=== PATIENT | female | born 1990 | race Caucasian/White ===

== ENCOUNTER → 2024-04-12 08:14 | Outpatient (REF) | payer BC, SELFPAY | LOC: RCS 08:14 | PROVIDERS: ATTENDING PHYSICIAN Internal Medicine Cardiovascular Disease; FAMILY PHYSICIAN Nurse Practitioner Family | DX: R00.2 Palpitations (principal) | CPT/HCPCS: 93017; 93350; Q9957 ==

== ENCOUNTER 2024-10-15 15:22 | Emergency (ER) | payer BC, SELFPAY ==
[2024-10-15] VITALS (10 sets, daily range): BP systolic 93–111; BP diastolic 51–96
--- NOTE | 2024-10-15 15:29 | ED.GENMED ---
ED Provider Triage
<Geovany Gates PA-C - Last Filed: 10/15/24 15:31>
-
Patient seen by provider in Triage?: Seen in Triage
Attestation: A medical screening examination has been initiated by a qualified medical provider. Based on the assessment performed at this time, it has been determined that an emergent medical condition may exist and the patient has been informed
that further medical evaluation and possible additional diagnostic testing may be needed.
HPI: 34-year-old female presenting to the ER for evaluation following a witnessed syncopal episode at home. Patient feeling little bit nauseous earlier in the day. Had an episode of vomiting following the syncopal episode. Currently stating still
feels nauseous and lightheaded. Patient does appear little bit pale. Labs and EKG ordered. EMS started an IV and patient is currently receiving IV fluids.
GENERAL: Alert , in no apparent distress
EYE: No visual abnormalities.
NECK: Trachea midline
ENT: No visible abnormalities.
LUNGS: No acute respiratory distress
NEUROLOGICAL: Alert and oriented
SKIN: Skin intact. No visible changes.
MUSCULOSKELETAL: Moving extremities normally
PSYCH: Normal and appropriate interaction.
This is a medical evaluation conducted in person to initiate diagnostic evaluation and provide initial therapeutics. Please see further documentation by the treating clinician.
History of Present Illness
<Geovany Gates PA-C - Last Filed: 10/15/24 15:31>
General
Chief Complaint: Fainting/Passed Out
Time Seen by Provider: 10/15/24 18:26
<Dale Harmon DO - Last Filed: 10/15/24 18:58>
General
Source: patient and spouse
Exam Limitations: none
History of Present Illness
History of Present Illness:
34-year-old female syncopal event associate with nausea vomiting diarrhea no head strike, has passed out before no chest pain or shortness of breath denies feeling better after fluids and Zofran
Past History
<Geovany Gates PA-C - Last Filed: 10/15/24 15:31>
Past History
ED Past Medical History: None
ED Past Surgical History: None
Social History
Tobacco: Non-smoker
Living: with family
Family History
Family History: Negative Diabetes, Hypertension, Early CAD, Asthma or Cancer
<Dale Harmon DO - Last Filed: 10/15/24 18:58>
Social History
Alcohol: None
Drug: None
Personal:
Employment: Employed
Review of Systems
<Dale Harmon DO - Last Filed: 10/15/24 18:58>
Review of Systems
All Other Systems: Not applicable
Constitutional: Reports fatigue; Denies fever
EENT: Reports no symptoms
Respiratory: Reports no symptoms; Denies cough or trouble breathing
Cardiac: Reports syncope
ABD/GI: Reports nausea, vomiting and diarrhea
Musculoskeletal: Reports no symptoms
Skin: Reports no symptoms
Neurological: Reports dizzy
Endocrine: Reports no symptoms
Hematologic/Lymphatic: Reports no symptoms
Phy Exam
<Dale Harmon DO - Last Filed: 10/15/24 18:58>
Physical Exam
Physical Exam:
Physical Exam
General: no apparent distress, not acutely ill
Neck: No tongue bite no posterior neck
Heart: s1/s2 regular rate and rhythm, no murmur. equal radial pulses.
Lungs: no acute respiratory distress. clear bilaterally
Abdomen: Nontender
Neuro: alert and oriented. no focal neurological deficits
Skin: no rash
Psychiatric: well kept. interactive and cooperative
Extremities: No calf pain
Course
<FATIMAH Nicholas Last Filed: 10/15/24 15:31>
Orders/Labs/Results
Orders:
Orders
10/15/24 15:30
Electrocardiogram (*1) Urgent
Reason for Study: Syncope
EKG- Treatment ONCE
Test Result ONCE
10/15/24 15:49
Complete Blood Count/With Diff Urgent
Comprehensive Metabolic Panel Urgent
HCG, Serum Qualitative Screen Urgent
Abnormal Lab Results
10/15/24
15:49
WBC 12.2 H 10^3/uL
(4.8-10.8)
Absolute Neuts (auto) 10.0 H 10^3/uL
(1.4-6.5)
Neutrophils % 82.1 H %
(42.2-75.2)
Lymphocytes % 11.7 L %
(20.5-51.1)
Glucose 116 H mg/dl
(70-99)
10/15/24 15:49
10/15/24 15:49
Vital Signs
Initial and Last Documented VS:
Initial Vital Signs
Temp Pulse Resp BP Pulse Ox
98.9 F 78 16 101/67 98
10/15/24 15:30 10/15/24 15:30 10/15/24 15:30 10/15/24 15:30 10/15/24 15:30
Last Documented Vital Signs
Temp Pulse Resp BP Pulse Ox
98.9 F 93 14 100/57 99
10/15/24 15:30 10/15/24 18:15 10/15/24 18:15 10/15/24 18:00 10/15/24 18:15
Jhonathanlt;Dale Harmon, DO - Last Filed: 10/15/24 18:58>
Orders/Labs/Results
Orders:
Orders
10/15/24 15:30
Electrocardiogram (*1) Urgent
Reason for Study: Syncope
EKG- Treatment ONCE
Test Result ONCE
10/15/24 15:49
Complete Blood Count/With Diff Urgent
Comprehensive Metabolic Panel Urgent
HCG, Serum Qualitative Screen Urgent
Abnormal Lab Results
10/15/24
15:49
WBC 12.2 H 10^3/uL
(4.8-10.8)
Absolute Neuts (auto) 10.0 H 10^3/uL
(1.4-6.5)
Neutrophils % 82.1 H %
(42.2-75.2)
Lymphocytes % 11.7 L %
(20.5-51.1)
Glucose 116 H mg/dl
(70-99)
10/15/24 15:49
10/15/24 15:49
Vital Signs
Initial and Last Documented VS:
Initial Vital Signs
Temp Pulse Resp BP Pulse Ox
98.9 F 78 16 101/67 98
10/15/24 15:30 10/15/24 15:30 10/15/24 15:30 10/15/24 15:30 10/15/24 15:30
Last Documented Vital Signs
Temp Pulse Resp BP Pulse Ox
98.9 F 93 14 100/57 99
10/15/24 15:30 10/15/24 18:15 10/15/24 18:15 10/15/24 18:00 10/15/24 18:15
<Dale Harmon DO - Last Filed: 10/15/24 18:58>
MDM/Problems Addressed
Differential Diagnosis Includes:
Dehydration vasovagal, enteritis, gastroenteritis, ectopic
MDM/Problems Addressed:
Syncope GI illness
<Dale Harmon DO - Last Filed: 10/15/24 18:58>
*Critical Care Note
Total Time (30-74mins, 75-104mins- exclusive of procedures): Not Applicable
<Dale Harmon DO - Last Filed: 10/15/24 18:58>
Update Note
Update Note:
Update patient feeling better after IV fluids and antiemetics abdomen soft and nontender suspect this is vasovagal she is tolerating ice water
ED Attending Note
<Geovany Gates PA-C - Last Filed: 10/15/24 15:31>
-
Portions of this chart may have been created with voice recognition software.� Occasional wrong word or��sound alike� substitutions may have occurred due to the inherent limitations of voice recognition software.
Discharge Plan
Departure
Patient Disposition: Home (Routine Discharge)
Date of Disposition: 10/15/24
Time of Disposition: 18:56
Patient with high blood pressure during this ER visit?: No
Discharge Problem:
Syncope and collapse
Instructions: Syncope (Fainting) (DC)
Prescriptions:
New
ondansetron 4 mg tablet,disintegrating
4 mg PO Q8H PRN (Reason: nausea and vomiting) Qty: 10 0RF
loperamide [Imodium A-D] 2 mg capsule
2 mg PO Q6H PRN (Reason: loose stool) Qty: 20 0RF
No Action
PNV cmb#95-ferrous fumarate-FA [] 1 EACH tablet
1 ea PO DAILY
acetaminophen 325 MG tablet
650 mg PO Q4HPRN PRN (Reason: mild pain/cramps) 0RF
ibuprofen 600 MG tablet
600 mg PO Q4HPRN PRN (Reason: moderate pain/cramps) 0RF
Referrals:
Flaquita Ayala CRNP [Family Provider] - Next open appointment
Activity Restrictions/Additional Instructions:
Drink plenty of fluids, Zofran as needed for nausea vomiting Imodium as needed for diarrhea
Interventions
Interventions:
*Risk Screen - Suicide Last Done: 10/15/24 15:30
*General Assessment Last Done: 10/15/24 15:30
*Neglect/Abuse Screening Last Done: 10/15/24 15:52
*ED COVID-19 Vaccine History Last Done: 10/15/24 15:30
ED- Cardiac Assessment Last Done: 10/15/24 15:52
ED- Neurological Assessment Last Done: 10/15/24 15:52
Discharge Date and Time
Print Language: DANISH
[2024-10-15 15:56] LABS: % Basophils 0.4 % (0-2); % Eosinophils 0.4 % (0-6); % Immature Granulocytes 0.2 % (0-0.5); % Lymphocytes 11.7 % (20.5-51.1); % Monocytes 5.2 % (1.7-9.3); % Neutrophils 82.1 % (42.2-75.2); Absolute Basophils 0.1 10^3/uL (0-0.2); Absolute Eosinophils 0.1 10^3/uL (0-0.7); Absolute Lymphocytes 1.4 10^3/uL (1.2-3.4); Absolute Monocytes 0.6 10^3/uL (0.1-0.6); Hematocrit 44.7 % (37.0-47.0); Hemoglobin 15.3 g/dL (12.0-16.0); Mean Corp Hgb Conc. 34.2 g/dL (33.0-37.0); Mean Corpuscular Hgb 30.8 pg (27.0-31.0); Mean Corpuscular Volume 89.9 fL (81.0-99.0); Mean Platelet Volume 9.1 fL (7.4-10.4); Nucleated Red Blood Cells % 0 %; Platelet Count 273 10^3/uL (130-400); Red Blood Cell Count 4.97 10^6/uL (4.20-5.40); Red Cell Dist. Width 13.2 % (11.5-14.5); White Blood Cell Count 12.2 10^3/uL (4.8-10.8)
[2024-10-15 16:12] LABS: HCG, Serum Qualitative Screen Negative
[2024-10-15 16:20] LABS: ALT (SGPT) 16 U/L (0-35); AST (SGOT) 25 U/L (14-36); Albumin 4.6 g/dl (3.5-5.0); Alkaline Phosphatase 55 U/L (38-126); Blood Urea Nitrogen 17 mg/dl (7-17); Carbon Dioxide 23 mmol/L (22-30); Chloride 104 mmol/L (98-107); Glucose 116 mg/dl (70-99); Potassium 3.7 mmol/L (3.5-5.1); Sodium 138 mmol/L (135-145); Total Bilirubin 0.6 mg/dl (0.2-1.3); Total Protein 7.1 g/dl (6.3-8.2); eGFR > 60.00
[2024-10-15] MEDS: ZOFRAN ODT (ORALLY DISINTEGRATING) 4 MG PO (19:20)
[2024-10-15] MEDS: NSS 1000 IV ×2 (19:31→21:06)
[2024-10-15] MEDS: TORADOL 30 MG IV (21:06)
== END 2024-10-15 22:26 | disposition home or self-care (01) ==
LOC: EMR 15:22
PROVIDERS: Physician Assistant Medical; EMERGENCY PHYSICIAN Emergency Medicine; FAMILY PHYSICIAN Nurse Practitioner Family
DX: R55 Syncope and collapse (principal); R11.2 Nausea with vomiting, unspecified; R19.7 Diarrhea, unspecified; Z88.2 Allergy status to sulfonamides
CPT/HCPCS: 99284; 96374; 96361 ×3; 80053; 84703; 85025; 93005

== ENCOUNTER → 2024-10-27 09:07 | Outpatient (REF) | payer BC, SELFPAY | LOC: RCS 09:07 | PROVIDERS: ATTENDING PHYSICIAN Nurse Practitioner Family | DX: R55 Syncope and collapse (principal) | CPT/HCPCS: 93017; 93350 ==

== ENCOUNTER 2025-01-27 00:37 | Observation (INO) | payer BC, SELFPAY ==
[2025-01-26 18:39] VITALS: BP 139/84
[2025-01-26 19:05] LABS: Hematocrit 41.3 % (37.0-47.0); Hemoglobin 14.3 g/dL (12.0-16.0); Mean Corp Hgb Conc. 34.6 g/dL (33.0-37.0); Mean Corpuscular Hgb 31.2 pg (27.0-31.0); Platelet Count 249 10^3/uL (130-400); Red Blood Cell Count 4.59 10^6/uL (4.20-5.40); Red Cell Dist. Width 13.8 % (11.5-14.5); White Blood Cell Count 7.3 10^3/uL (4.8-10.8)
[2025-01-26 19:14] LABS: HCG, Serum Qualitative Screen Negative
[2025-01-26 19:17] LABS: ALT (SGPT) 17 U/L (0-35); AST (SGOT) 22 U/L (14-36); Albumin 4.5 g/dl (3.5-5.0); Alkaline Phosphatase 48 U/L (38-126); Blood Urea Nitrogen 31 mg/dl (7-17); Calcium 10.1 mg/dl (8.4-10.2); Carbon Dioxide 26 mmol/L (22-30); Chloride 104 mmol/L (98-107); Glucose 98 mg/dl (70-99); Sodium 139 mmol/L (135-145); Total Bilirubin 0.4 mg/dl (0.2-1.3); eGFR > 60.00
[2025-01-26 22:00] VITALS: BMI 21.2
[2025-01-26 22:04] VITALS: BP 109/74
--- NOTE | 2025-01-26 22:05 | ED.GENMED ---
History of Present Illness
General
Chief Complaint: Seizure
Source: patient
Exam Limitations: none
Time Seen by Provider: 01/26/25 21:34
History of Present Illness
History of Present Illness:
35yoF with no significant past medical history presenting for evaluation after a seizure. Patient has no prior history of epilepsy or seizure. She reports having 4 seizures over the past 3 months. The episodes are described as starting with
nausea. This is followed by feeling like she is out of side of her body, cold sweats, and diffuse paresthesias. Patient then loses consciousness. Her has told her that she rolls her eyes in the back of her head and has generalized
shaking. The episode lasts usually about a minute before resolving. She reports feeling nauseous and feeling weak for the remainder of the day. She denies any associated incontinence or tongue biting. She has seen her PCP for the symptoms and
was referred to neurology but was unable to get an appointment until May. She was told to go to the ED for evaluation and medications. She denies any specific trigger to these events. No alcohol or drug use. She does not take any prescription
medications.
Past History
Past History
ED Past Medical History: None
ED Past Surgical History: None
Social History
Tobacco: Non-smoker
Alcohol: None
Drug: None
Personal:
Living: with family
Employment: Employed
Family History
Family History: Negative Diabetes, Hypertension, Early CAD, Asthma or Cancer
Phy Exam
General Physical Exam
General Presentation: well appearing and no apparent distress
General age: appears stated age
General Skin: warm and dry
General Habitus: normal
General Mental: alert
ENT Exam
ENT Exam: normocephalic and other (No nuchal rigidity)
Eye Exam
Eye Exam: PERRL and conjunctiva normal
Cardiovascular Exam
Cardiovascular Exam: regular rate/rhythm
Pulmonary Exam
Pulmonary Exam: lungs clear, no respiratory distress, no rales, no crackles and no rhonchi
Neurological Exam
Neurological Exam: alert and other (No focal deficits)
Joss Coma Scale
Eye Opening: Spontaneous
Verbal Response: Oriented
Motor Response: Obeys Commands
GCS Total Score: 15
Skin Exam
Skin Exam: normal color and warm/dry
Psychiatric Exam
Psychiatric Exam: normal mood/affect
Course
Orders/Labs/Results
Orders:
Orders
01/26/25 18:48
Test Result ONCE
01/26/25 18:52
CMP [Comprehensive Metabolic Panel] Urgent
Complete Blood Count/No Diff Urgent
HCG, Serum Qualitative Screen Urgent
01/26/25 21:35
Electrocardiogram (*1) Urgent
Reason for Study: Other
Other Reason for Exam: seizure
EKG- Treatment ONCE
01/26/25 21:59
CT Head W/o Iv Contrast Urgent
Comment:
Reason For Exam: new onset seizure
01/26/25 22:55
Acetaminophen [Tylenol] 1,000 mg PO NOW STA
01/26/25 23:00
Flush (0.9% Sodium Chloride) [Flush (Nss)] See Dose Instructions IV PER PROTOCOL
Abnormal Lab Results
01/26/25
18:52
MCH 31.2 H pg
(27.0-31.0)
BUN 31 H mg/dl
(7-17)
01/26/25 18:52
01/26/25 18:52
Vital Signs
Initial and Last Documented VS:
Initial Vital Signs
Temp Pulse Resp BP Pulse Ox
98.7 F 78 18 139/84 99
01/26/25 18:39 01/26/25 18:39 01/26/25 18:39 01/26/25 18:39 01/26/25 18:39
Last Documented Vital Signs
Temp Pulse Resp BP Pulse Ox
98.7 F 74 18 109/74 99
01/26/25 18:39 01/26/25 22:45 01/26/25 22:45 01/26/25 22:04 01/26/25 18:39
MDM/Problems Addressed
Differential Diagnosis Includes:
35yoF here after a seizure this afternoon. No prior history of epilepsy. Reportedly has not for seizures in the past 3 months. Has not been able to get an appointment with neurology. Currently asymptomatic. Vital stable. No meningismus or
focal neuro deficits on exam. Differential diagnosis includes but is not limited to: epilepsy, PNES, convulsive syncope
Labs obtained which are unremarkable including normal electrolytes. HCG negative. EKG shows NSR without ischemic changes. CT head negative for acute findings. Will admit for neuro evaluation and further management.
*Critical Care Note
Total Time (30-74mins, 75-104mins- exclusive of procedures): Not Applicable
ED Attending Note
-
Portions of this chart may have been created with voice recognition software.� Occasional wrong word or��sound alike� substitutions may have occurred due to the inherent limitations of voice recognition software.
Discharge Plan
Departure
Patient Disposition: Admit
Date of Disposition: 01/26/25
Time of Disposition: 23:12
Presentation/result/management discussed w/ accepting MD/DO: Hospitalist
Discharge Problem:
Seizure
Prescriptions:
No Action
PNV cmb#95-ferrous fumarate-FA [] 1 EACH tablet
1 ea PO DAILY
acetaminophen 325 MG tablet
650 mg PO Q4HPRN PRN (Reason: mild pain/cramps) 0RF
ibuprofen 600 MG tablet
600 mg PO Q4HPRN PRN (Reason: moderate pain/cramps) 0RF
ondansetron 4 mg tablet,disintegrating
4 mg PO Q8H PRN (Reason: nausea and vomiting) Qty: 10 0RF
loperamide [Imodium A-D] 2 mg capsule
2 mg PO Q6H PRN (Reason: loose stool) Qty: 20 0RF
Referrals:
Flaquita Ayala CRNP [Family Provider] -
Interventions
Interventions:
*Risk Screen - Suicide Last Done: 01/26/25 18:39
*General Assessment Last Done: 01/26/25 22:00
*Neglect/Abuse Screening Last Done: 01/26/25 18:39
*ED- Fall Risk Assessment Last Done: 01/26/25 22:00
*ED COVID-19 Vaccine History Last Done: 01/26/25 18:47
ED- Cardiac Assessment Last Done: 01/26/25 22:52
ED- Neurological Assessment Last Done: 01/26/25 22:52
ED- Pulmonary Assessment Last Done: 01/26/25 22:52
Discharge Date and Time
Print Language: BHUTANESE
[2025-01-26] MEDS: TYLENOL 1000 MG PO (22:57)
[2025-01-26 23:00] VITALS: BP 102/72
--- NOTE | 2025-01-26 23:38 | HPS.HSE ---
Family Physician
-
Family Physician: SHANTI Trinidad
Chief Complaint
-
seizure like activity
History of Present Illness
Patient is a 35-year-old female with past medical history significant for seizure disorder who presented with seizure like event. Patient states she was recently diagnosed with seizures approximately 3 months ago, was no placed on any medication and
has initial appoint with neurology out patient May 31. Patient states that she has a recent sensation of electrical pulse in left side of brain that goes front to back, this happens intermittently and she does not associate with the seizure like
activity she has had. She reports prior to a seizure like episode she becomes diaphoretic, nauseous and lightheaded. She reports that after this she becomes unresponsive and begins to 'wake up,' he is able to hear and understand what is going on
around her but is unable to communicate. She says she has sensation that body is shaking uncontrollably and is definitely diaphoretic. She states people that have witnessed events report shaking and her being unresponsive. She denies having a fall
and that event happened while she was seated. No recent injuries. Patient denies daily medications, alcohol or drug use.
Medical History
Past Medical History
Past Medical History: Reports Other
Additional Past Medical History:
seizure disorder
palpitations
PVC's
Past Surgical History: Reports Other
Additional Past Surgical History:
breast augmentation
Social History
Tobacco: Non-smoker
Alcohol: None
Drug: None
Personal:
Living: With Family
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
Family History
Family History: Other (Mother: syncopal episodes )
Allergies / Home Medications
Allergies reflects when Allergies were last updated in [facility].
Home Medications with original date entered in [facility]
Allergy/Medication List:
Allergies
Allergy/AdvReac Type Severity Reaction Status Date / Time
Sulfa (Sulfonamide Allergy Unknown Hives Verified 01/26/25 18:47
Antibiotics)
[Sulfa(Sulfonamide
Antibiotics)]
Review of Systems
-
History Source: Patient
Constitutional: Reports No Symptoms
EENT: Reports No Symptoms
Respiratory: Reports No Symptoms
Cardiac: Reports Diaphoresis
Abdomen/GI: Reports Nausea
: Reports No Symptoms
Musculoskeletal: Reports No Symptoms
Skin: Reports No Symptoms
Neurological: Reports Dizzy and Numbness
Endocrine: Reports No Symptoms
Hematologic/Lymphatic: Reports No Symptoms
Psych: Reports No Symptoms
Physical Exam
Vital Signs
Vital Signs
Temp Pulse Resp BP Pulse Ox
98.7 F 74 18 109/74 99
01/26/25 18:39 01/26/25 22:45 01/26/25 22:45 01/26/25 22:04 01/26/25 18:39
Physical Exam
General: Well Developed, Well Nourished, No Apparent Distress, Comfortable and Conversant
HEENT: NormoCephalic, Moist mucous membranes, Atraumatic, PERRLA, Teague Conjunctivae, Nose Appears Normal and Ears Appear Normal
Respiratory: Clear and Non Labored Respirations
Cardiac: S1/S2 and Regular Rhythm
Breast: Deferred by me
GI: Soft, Non Tender, Non Distended and Normal Bowel Sounds
Rectal: Deferred by Provider
Genito-urinary: Deferred by me
Musculoskeletal: No Clubbing, No Cyanosis and No Edema
Skin: Warm and IV/Catheter Site
Neuro: Awake, Alert, AO x 3 and Nonfocal/grossly intact
Psych: Calm and Intact Judgment/Insight
Laboratory Results
-
01/26/25 18:52
01/26/25 18:52
Laboratory Results
Total Bilirubin 0.4 mg/dl (0.2-1.3) 01/26/25 18:52
AST 22 U/L (14-36) 01/26/25 18:52
ALT 17 U/L (0-35) 01/26/25 18:52
Alkaline Phosphatase 48 U/L (38-126) 01/26/25 18:52
Data Reviewed
-
CT Scan: Report Reviewed by me (Head CT: No acute intracranial abnormality noted.)
Medical Tests (Nuc Med, Echo, EKG etc): Report Reviewed by me (EKG: NORMAL SINUS RHYTHM)
Lab Data: Labs Reviewed by me
Impression/Plan
-
IMPRESSION/PLAN:
#syncopal episode
#seizure disorder
EKG: NORMAL SINUS RHYTHM
Head CT: No acute intracranial abnormality noted.
- Admit to telemetry
- Consult Neurology
- IVF
Code status: full code
DVT Prophylaxis: Lovenox sq
[2025-01-27] VITALS (7 sets, daily range): BP systolic 97–110; BP diastolic 42–76
--- NOTE | 2025-01-27 00:06 | W.PN.UPDATE ---
Update Note
Progress Note Update
Patient seen in conjunction with SHANTI. I agree the findings on history and physical. I concur with assessment and plan.
This is a 35-year-old with no known significant past medical history presenting to the emergency department with recurrent seizure-like episodes since 3 months ago. He is apparently had 4 such episodes since then. She was seen in the emergency
department in October with this episode. At that time she had a stress echo which was normal. ECG was not ischemic and she showed no signs of arrhythmia. Patient has not been having any palpitations lightheadedness dizziness. She did have recent
episodes where she feels like she was having chills and shakes and is unable to respond even though she is hears what is going on around her. Witnesses say that she is awake but does not respond. There is no loss of bladder or bowel continence.
She denies any drug use. She denies family history of seizures. She denies syncope or collapse of but she is always seated during these episodes. She has not started any new medication.
In the emergency department she was afebrile, blood pressure was 109/74 with a pulse of 74 and she was satting 98% on room air. ECG shows normal sinus rhythm at a rate of 69. CBC was normal. Electrolytes BUN/creatinine were normal. CT of the
head shows no acute abnormality.
Assessment and plan
Patient with possible seizure/pseudoseizure possible syncopal episode. She has had some workup for syncope in the past.
� Admit to telemetry observation
� Monitor on telemetry x 24 hours, orthostatic vital signs, recent stress echo done will not repeat at this time,
Check TSH
� Possible seizure, and no active seizures at this time. Labs okay. Will consult neurology. Additional imaging per neurology. EEG per neurology
� Currently does not require any acute medications, will have as needed lorazepam if seizure
�DVT prophylaxis with SCDs
�CODE STATUS full code
[2025-01-27] MEDS: NSS 1000 IV ×2 (01:26→09:29)
--- NOTE | 2025-01-27 07:32 | CON.NEURO ---
Consultation
Order
Date of Consultation: 01/27/25
Requesting Provider: Kathleen Jimenes CRNP
Reason for Consult: Seizure versus syncope.
Neurology consultation.
HPI: This is a 35-year-old woman who presented to [facility] on January 26, 2025 with recurrent spells. According to the patient she had an episode while she was out getting ice cream with her children. She felt 'it is coming on' asked
her friend to watch her children before she went to the car sat down. She reportedly 'went out 'before her friend came to check on and called her . Following the episode she felt drained, confused, weak, and nauseous for the rest of the
day. She contacted her PCP who directed her to ER.
The patient reports that her first spell occurred in December of last year while on a plane, during which she lost consciousness. In October of this year, she began experiencing 'convulsions'. The episodes typically short and occurs about 4-5 times in
the last 3 months. During these episodes, she experiences electrical waves flowing through the left side of her brain, followed by speech and behavior arrest upon regaining consciousness. When convulsions occur, she describes her body shaking
uncontrollably.
No reports of head trauma, encephalitis, febrile seizures or family history of epilepsy.
ER VS: 139/84, 78, afebrile
EKG:NSR, QTc Int : 422 ms
PDMP:none
Labs: Normal WBC, sodium, glucose, creatinine,
CT head wo contrast�unremarkable
PMH: Migraine with aura
PSH: augmentation mammoplasty
SH: has 2 children, [id number] mom, non-smoker, no history of alcohol use
FH: Mother�migraine
All: Sulfa
ROS: Constitutional: Negative. Negative for chills, fever and unexpected weight change.
HENT: Negative for ear pain, hearing loss, tinnitus and trouble swallowing.
Eyes: Negative. Negative for photophobia, pain and visual disturbance.
Respiratory: Negative for cough, choking and shortness of breath.
Cardiovascular: Negative for chest pain, palpitations and leg swelling.
Gastrointestinal: Negative for abdominal pain and vomiting.
Endocrine: Negative. Negative for cold intolerance.
Genitourinary: Negative for dysuria, flank pain and urgency.
Musculoskeletal: Negative for back pain, gait problem, neck pain and neck stiffness.
Skin: Negative for rash.
Allergic/Immunologic: Negative. Negative for immunocompromised state.
Neurological: Positive for recurrent spells, episodic headache
Psychiatric/Behavioral: Negative for behavioral problems, confusion and hallucinations.
General: Well developed. In no acute distress.
Cardio: Regular rate and rhythm without murmur. Extremities are without cyanosis or edema.
Neuro:
Mental Status: Alert, oriented to person, place, and date. Normal attention and recall. Good fund of knowledge. Follows complex requests across the midline. Comprehension, naming, and repetition intact. Immediate and delayed recall 3/3.
Cranial Nerves: Pupils are equally round and reactive to light. EOMs full. Visual rowland full to confrontation. No ptosis. No nystagmus. V1-V3 intact to light touch and pinprick bilaterally, symmetric. Face symmetric. Normal hearing AU. The
palate elevated well. SCMs and traps 5/5. Tongue midline. No dysarthria. Min lisp
Motor: Normal bulk and tone. No pronator or arm drift. Strength 5/5 throughout. No clonus.
Reflexes: 2+ throughout the upper extremities and knees. 2/2 in AJs. Plantar responses flexor bilaterally.
Sensory: Normal pinprick, vibration and JPS.
Coordination: No dysmetria or tremor.
Gait: deferred
Assessment and Plan:
I. 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
- Continue telemetry monitoring
- Seizure precautions
- Start Keppra 1 g IV followed by 500 mg twice daily
- Brain MRI without will (epilepsy protocol
- Please check magnesium, TFTs, UA
- No driving for 6 months
- Effective contraception
I personally reviewed all radiology and labs along with past medical records pertinent to current medical problems. Total time spent in patient care is 60 minutes.
Thank you for allowing us to participate in the care of this patient. We will continue to follow. Please do not hesitate to contact us with any questions or concerns.
Subjective/Objective
Subjective Data
Date of Service: January 27, 2025
Objective Data
Vital Signs
Temp Pulse Resp BP Pulse Ox
37.1 C 67 15 105/71 99
01/26/25 18:39 01/27/25 02:15 01/27/25 02:15 01/27/25 01:58 01/26/25 18:39
Lab Results
01/26/25 18:52
01/26/25 18:52
Sodium 139 mmol/L (135-145) 01/26/25 18:52
Potassium 4.0 mmol/L (3.5-5.1) 01/26/25 18:52
BUN 31 mg/dl (7-17) H 01/26/25 18:52
Glucose 98 mg/dl (70-99) 01/26/25 18:52
Calcium 10.1 mg/dl (8.4-10.2) 01/26/25 18:52
Patient Allergies
Sulfa (Sulfonamide Antibiotics) [Sulfa(Sulfonamide Antibiotics)] Allergy (Unknown, Verified 01/26/25 18:47)
Hives
Medications
-
Active Medications
Generic Name Dose Route Start Last Admin
Trade Name Freq PRN Reason Stop Dose Admin
Acetaminophen 650 mg 01/27/25 00:55
Acetaminophen 325 Mg Tablet PO 02/24/25 00:54
Q4HPRN PRN
mild pain/MURCIA/temp> 100.4F
Enoxaparin Sodium 40 mg 01/27/25 18:00
Enoxaparin Sodium 40 Mg/0.4 Ml Syringe SC 02/24/25 17:59
QPM NATASHA
Sodium Chloride 1,000 mls @ 125 mls/hr 01/27/25 00:55 01/27/25 01:26
Nss IV 1,000 mls
.Q8H NATASHA Administration
Sodium Chloride 0 flush 01/26/25 23:00
Sodium Chloride 0.9% (Flush) Syringe IV 02/23/25 22:59
PER PROTOCOL NATASHA
Home Medications
�Medication �Instructions �Recorded
No Meds [No Current Medications] 01/27/25
Vital Signs and Labs
-
Vital Signs and Labs:
Vital Signs
Temp Pulse Resp BP Pulse Ox
37.1 C 67 15 105/71 99
01/26/25 18:39 01/27/25 02:15 01/27/25 02:15 01/27/25 01:58 01/26/25 18:39
Lab Results
01/26/25 18:52
01/26/25 18:52
Sodium 139 mmol/L (135-145) 01/26/25 18:52
Potassium 4.0 mmol/L (3.5-5.1) 01/26/25 18:52
BUN 31 mg/dl (7-17) H 01/26/25 18:52
Glucose 98 mg/dl (70-99) 01/26/25 18:52
Calcium 10.1 mg/dl (8.4-10.2) 01/26/25 18:52
Medications
-
Medications:
Generic Name Dose Route Start Last Admin
Trade Name Freq PRN Reason Stop Dose Admin
Acetaminophen 650 mg 01/27/25 00:55
Acetaminophen 325 Mg Tablet PO 02/24/25 00:54
Q4HPRN PRN
mild pain/MURCIA/temp> 100.4F
Enoxaparin Sodium 40 mg 01/27/25 18:00
Enoxaparin Sodium 40 Mg/0.4 Ml Syringe SC 02/24/25 17:59
QPM NATASHA
Sodium Chloride 1,000 mls @ 125 mls/hr 01/27/25 00:55 01/27/25 01:26
Nss IV 1,000 mls
.Q8H NATASHA Administration
Sodium Chloride 0 flush 01/26/25 23:00
Sodium Chloride 0.9% (Flush) Syringe IV 02/23/25 22:59
PER PROTOCOL NATASHA
Home Medications
-
Home Medications
No Meds [No Current Medications] 01/27/25
[2025-01-27] MEDS: KEPPRA 1000 MG IV (09:26)
--- NOTE | 2025-01-27 10:53 | EEG.RPT ---
Electroencephalogram Report
Recording
Date of EE01/27/25
Type of EEG: Routine
Length of EEG recordin minutes
Done with Video Recording: Yes
Patient Status: Emergency Room
Recording Conditions: Awake and Drowsy
Hyperventilation Performed: Yes
Photic Stimulation Performed: Yes
Report
LESS THAN 1 HOUR EEG REPORT
LESS THAN 1 HOUR EEG INTERPRETATION:
Unremarkable EEG for age
CLINICAL CORRELATION:
A normal EEG does not rule out a diagnosis of epilepsy. If clinical suspicion for seizure persists, a prolonged recording may be warranted.
Clinical correlation is advised.
METHODS:
A 21 channel digitized electroencephalogram (EEG) was performed using the 10/20 international system of electrode placement and one-lead of ECG recorded. Video was recorded. Persyst quantitative EEG analysis was performed.
ELECTROENCEPHALOGRAPHER IMPRESSION(S):
Quality of study
Good
Background
There was an unremarkable anterior-posterior voltage gradient of alpha frequency.
With eye opening the background activity changed to a low voltage mixture of frequencies.
There were no significant asymmetries of background activity noted.
Sleep
Drowsiness present
Hyperventilation
No driving
Photic Stimulation
No driving
ECG
Normal sinus rhythm
[2025-01-27] MEDS: ATIVAN 1 MG IV (10:56)
[2025-01-27 11:21] LABS: Urine Albumin Negative (Neg - Trace); Urine Bilirubin Negative (Negative); Urine Character Clear (Clear); Urine Color Yellow; Urine Glucose Negative (Negative); Urine Ketone Negative (Negative); Urine Leukocyte 3+ (Negative); Urine Nitrite Negative (Negative); Urine Occult Blood Negative (Negative); Urine Specific Gravity 1.015 (<1.030); Urine Urobilinogen Negative (Neg - 1+)
[2025-01-27 11:34] LABS: Amphetamines Negative (Negative); Barbiturates Negative (Negative); Benzodiazepines Negative (Negative); Buprenorphine Negative (Negative); Cocaine Negative (Negative); Marijuana Negative (Negative); Methadone Negative (Negative); Methamphetamines Negative (Negative); Opiates Negative (Negative); Phencyclidine Negative (Negative); Tricyclic Antidepressants Negative (Negative)
[2025-01-27 11:38] LABS: Magnesium 2.2 mg/dl (1.6-2.3)
[2025-01-27 11:51] LABS: Urine Squamous Cell 16-20 /LPF (Few)
[2025-01-27 11:52] LABS: Urine Red Blood Cell 0-2 /HPF (0-2)
[2025-01-27 11:53] LABS: Urine Yeast Few (Negative)
[2025-01-27 12:03] LABS: TSH Reflex To Free T4 2.59 uIU/ml (0.47-4.68)
--- NOTE | 2025-01-27 14:38 | W.PN.HOSP.TC ---
Today's Communication/Plan
-
Discharge home
Assessment / Plan
Assessment / Plan
Assessment/plan
Seizure
EKG: NORMAL SINUS RHYTHM
Head CT: No acute intracranial abnormality noted.
Seen by neurology and started on Keppra.
MRI brain negative.
EEG shows no acute seizure activity
CODE STATUS: Full code
DVT prophylaxis: Lovenox
Diet: Regular diet
Total time spent on today's encounter was 65 minutes which included time spent in counseling the patient/family regarding diagnosis and treatment plan as listed above, goals of care, and symptom management. Case was discussed with nursing staff,
specialists, and care coordinators/case management. All labs and imaging personally reviewed by me. Remainder the time spent in detailed review of previous records, lab data, imaging, and other medical provider documentation.
Anticipated Discharge: Today
Subjective/Interval History
-
Date of Service: January 27, 2025
Patient seen and examined at bedside, denies any chest pain or shortness of breath, no abdominal pain, no nausea, no vomiting, no diarrhea or constipation.
Patient seen by neurology and started on Keppra.
MRI brain negative, EEG normal
Objective Data
-
Vital Signs:
Vital Signs
Temp Pulse Resp BP Pulse Ox
98.3 F 59 19 99/58 96
01/27/25 10:34 01/27/25 13:45 01/27/25 13:45 01/27/25 13:11 01/27/25 06:45
Physical Exam
-
General: Well Developed, Well Nourished, No Apparent Distress and Comfortable
HEENT: Normocephalic, Atraumatic, Moist Mucous Membranes, No Ptosis, PERRLA and Nose Appears Normal
Respiratory: Clear to Auscultation and Non Labored Respirations
Cardiac: Regular Rhythm and S1/S2
Breast: Deferred by me
GI: Soft, Nontender, Nondistended and Normal Bowel Sounds
Genito-urinary: No Costovertebral Tender
Musculoskeletal: No Clubbing, No Cyanosis and No Edema
Skin: Warm
Neuro: Awake, Alert, Oriented, AO x 3 and No Motor Deficits
Psych: Calm
Data Reviewed
-
Diagnostic Radiology: Image personally visualized and interpreted and Report Reviewed by me
CT Scan: Image personally visualized and interpreted and Report Reviewed by me
Ultrasound: Image personally visualized and interpreted and Report Reviewed by me
MRI: Image personally visualized and interpreted and Report Reviewed by me
Medical Tests (Nuc Med, Echo etc): Image personally visualized and interpreted and Report Reviewed by me
Labs: Labs Reviewed by me
Old Records: Reviewed
--- NOTE | 2025-01-27 15:21 | W.DCSUMMARY ---
Discharge Summary
Discharge Data
Date of Admission: 01/27/25
Date of Discharge: 01/27/25
-
Pending Results: No
Hospital Course
Hospital course
Patient is a 35-year-old female with past medical history significant for seizure disorder who presented with seizure like event, seen by neurology, MRI brain negative, EEG came back shows no acute seizure, neurology recommending Keppra 500 mg twice
daily on discharge, no driving.
During hospitalization patient was treated from the [facility]
Seizure
EKG: NORMAL SINUS RHYTHM
Head CT: No acute intracranial abnormality noted.
Seen by neurology and started on Keppra.
MRI brain negative.
EEG shows no acute seizure activity
CODE STATUS: Full code
DVT prophylaxis: Lovenox
Diet: Regular diet
Total time spent on today's encounter was 40 minutes which included time spent in counseling the patient/family regarding diagnosis and treatment plan as listed above, goals of care, and symptom management. Case was discussed with nursing staff,
specialists, and care coordinators/case management. All labs and imaging personally reviewed by me. Remainder the time spent in detailed review of previous records, lab data, imaging, and other medical provider documentation.
Anticipated Discharge: Today
Discharge Plan
-
Patient Disposition: Home (Routine Discharge)
Discharge Diagnosis/Procedures: seizure
Condition: Good
Diet: Regular
Activity: As tolerated
Driving Restrictions: No driving
Referrals:
Flaquita Ayala CRNP [Family Provider] -
Nakul Machuca MD [Active] - in one to two weeks
Prescriptions:
New
levetiracetam [Keppra] 500 mg tablet
500 mg PO BID Qty: 60 3RF
Discharge Orders:
Discharge Patient (As Directed); Ordered 01/27/25
Ordered By: Blake Lea
Discharge Date and Time
Print Language: LAO
== END 2025-01-27 16:06 | disposition home or self-care (01) ==
LOC: ED 00:37
PROVIDERS: Emergency Medicine; ADMITTING PHYSICIAN Internal Medicine; ATTENDING PHYSICIAN General Practice; CONSULT PHYSICIAN Psychiatry & Neurology Neurology; EMERGENCY PHYSICIAN Emergency Medicine; FAMILY PHYSICIAN Nurse Practitioner Family
DX: G40.909 Epilepsy, unspecified, not intractable, without status epilepticus (principal); R11.0 Nausea; R20.2 Paresthesia of skin; R53.1 Weakness; R61 Generalized hyperhidrosis; R55 Syncope and collapse; Z88.2 Allergy status to sulfonamides
CPT/HCPCS: 70450; 70551; 80053; 80306; 81003; 81015; 83735; 84443; 84703; 85027; 93005; 95816; 99285; G0378

== ENCOUNTER → 2025-03-06 09:01 | Outpatient (REF) | payer BC, SELFPAY | LOC: EEG 09:01 | PROVIDERS: ATTENDING PHYSICIAN Registered Nurse Critical Care Medicine; FAMILY PHYSICIAN Nurse Practitioner Family | DX: R41.82 Altered mental status, unspecified (principal) | CPT/HCPCS: 95708 ==

== ENCOUNTER 2025-03-28 01:26 | Emergency (ER) | payer BC, SELFPAY ==
[2025-03-28 01:31] VITALS: BP 110/80
[2025-03-28 05:28] VITALS: BP 106/67
[2025-03-28 05:29] VITALS: BMI 22.3
--- NOTE | 2025-03-28 05:57 | ED.GENMED ---
History of Present Illness
General
Chief Complaint: Musculo-Skeletal Complaint
Source: patient
Exam Limitations: none
Time Seen by Provider: 03/28/25 05:38
Nursing documentation reviewed up to this point in time: agreed with
History of Present Illness
History of Present Illness:
This is a 35 year-old female with a past medical history of seizure disorder, who presents to the emergency department today with concerns of a sharp pain to her right posterior rib area. Patient reports that she�s had a persistent cough and
intermittent mucus production for the past 2 weeks. She saw urgent care a week ago and was diagnosed with bronchitis and was started on an unknown antibiotic which she is still taking. She was also started on tessalon pearls. Tonight she had a
coughing fit and felt sudden sharp pain in the right posterior rib area and she feels like the area is swollen. It hurts to take a deep breath. She is not short of breath. She denies palpitations, sternal chest pain, abdominal pain, hemoptysis. She
did not take anything for her pain.
Past History
Past History
ED Past Medical History: None
ED Past Surgical History: None
Social History
Tobacco: Non-smoker
Alcohol: None
Drug: None
Personal:
Living: with family
Employment: Employed
Family History
Family History: Negative Diabetes, Hypertension, Early CAD, Asthma or Cancer
Review of Systems
Review of Systems
All Other Systems: ROS reviewed and negative except as documented in HPI and ROS
Phy Exam
Physical Exam
Physical Exam:
General: Patient is well appearing, in no acute distress
Skin: Warm and dry, no rashes or lesions
Head: Normocephalic, atraumatic
Eyes: Sclera non-icteric. EOMs intact.
Cardiac: Regular rate and rhythm, no murmurs. Tenderness noted over the right 8th posterior rib no palpable crepitus
Peripheral Vascular: No lower extremity swelling or edema
Pulm: Normal respiratory effort, rhonchi appreciated on the right side
Neuro: CN II-XII intact, no focal neurologic deficits.
Psychiatric: Appropriate mood and affect.
Course
Orders/Labs/Results
Orders:
Orders
03/28/25 01:34
CR Ribs-right 3 Vw W/pa Chest* Urgent
Reason For Exam: COUGHED, PAIN RT POSTERIOR RIBS
03/28/25 06:07
Ibuprofen [Motrin] 600 mg PO NOW STA
Ipratropium/Albuterol Sulfate [Duoneb] 3 ml INH R NOW STA
Vital Signs
Initial and Last Documented VS:
Initial Vital Signs
Temp Pulse Resp BP Pulse Ox
98.1 F 84 18 110/80 99
03/28/25 01:31 03/28/25 01:31 03/28/25 01:31 03/28/25 01:31 03/28/25 01:31
Last Documented Vital Signs
Temp Pulse Resp BP Pulse Ox
97.6 F 78 18 106/70 100
03/28/25 07:31 03/28/25 07:31 03/28/25 07:31 03/28/25 07:31 03/28/25 07:31
MDM/Problems Addressed
Differential Diagnosis Includes:
ddx include pleurisy, pneumonia, acute bronchitis, rib fracture, contusion, pneumothorax
MDM/Problems Addressed:
This is a 35 year-old female with a past medical history of seizure disorder, who presents to the emergency department today with concerns of a sharp pain to her right posterior rib area. This happened after a coughing fit. She is currently being
treated for bronchitis. On physical exam, she is well appearing in no acute distress, does have palpable tenderness and rhonchi. Symptoms did improve with duoneb and ibuprofen. Will initiate medrol dose basil to faciliate bronchitis treatment. CXR
negative for pneumothorax or pneumonia. Strict return precautions discussed. Patent stable for discharge.
*Pulse Oximetry
SaO2: 98
Oxygen Mode of Delivery: Room air
Patient hypoxic: no
*Critical Care Note
Total Time (30-74mins, 75-104mins- exclusive of procedures): Not Applicable
ED Attending Note
-
Portions of this chart may have been created with voice recognition software.� Occasional wrong word or��sound alike� substitutions may have occurred due to the inherent limitations of voice recognition software.
Discharge Plan
Departure
Patient Disposition: Home (Routine Discharge)
Date of Disposition: 03/28/25
Time of Disposition: 07:23
Patient with high blood pressure during this ER visit?: No
Condition: Good
Discharge Problem:
Pleurisy, Acute bronchitis
Instructions: Bronchitis in adults - ED discharge instructions, Pleurisy
Prescriptions:
New
methylprednisolone [Medrol (Basil)] 4 mg tablets,dose pack
See Rx Instructions .ROUTE .COMPLEX Qty: 21 0RF
Rx Instructions:
orally per package directions
No Action
levetiracetam [Keppra] 500 mg tablet
500 mg PO BID Qty: 60 3RF
Referrals:
Flaquita Ayala CRNP [Family Provider, Internal Medicine]
Activity Restrictions/Additional Instructions:
Please follow-up with your primary care provider.
PLEASE RETURN EMERGENCY DEPARTMENT SHOULD YOU DEVELOP CHEST PAIN, ACUTE WORSENING OR SYMPTOMS, TROUBLE BREATHING, COUGHING UP OF BLOOD, LIGHTHEADEDNESS, DIZZINESS, OR ANY OTHER SIGNS OR SYMPTOMS WORRISOME TO YOU.
Interventions
Interventions:
*Risk Screen - Suicide Last Done: 03/28/25 01:31
*General Assessment Last Done: 03/28/25 05:24
*Neglect/Abuse Screening Last Done: 03/28/25 01:31
*ED- Fall Risk Assessment Last Done: 03/28/25 05:24
*ED COVID-19 Vaccine History Last Done: 03/28/25 05:24
*Nursing Disposition Last Done: 03/28/25 07:31
ED-Musculoskeletal Assessment Last Done: 03/28/25 07:27
Discharge Date and Time
Discharge Date/Time: 03/28/25 07:35
Print Language: PALESTINIAN
[2025-03-28] MEDS: MOTRIN 600 MG PO (06:35)
[2025-03-28] MEDS: DUONEB 3 ML INH (06:35)
[2025-03-28 07:26] VITALS: BP 106/70
[2025-03-28 07:31] VITALS: BP 106/70
== END 2025-03-28 07:35 | disposition home or self-care (01) ==
LOC: EMR 01:26
PROVIDERS: EMERGENCY PHYSICIAN Emergency Medicine; FAMILY PHYSICIAN Nurse Practitioner Family
DX: J20.9 Acute bronchitis, unspecified (principal); R09.1 Pleurisy
CPT/HCPCS: 99283; 94640; 71101

== ENCOUNTER → 2025-04-19 12:54 | Outpatient (REF) | payer BC, SELFPAY ==
--- NOTE | 2025-04-19 13:30 | PTCARENOTE ---
Pt here for Echo with Bubble Study, denies chance of . Bubble Study completed per protocol with aseptic technique. Left antecubital median site 22 G PC utilized, flushed easily pre and post procedure. Heplock D/C ed at 1328, site clear,
no redness, no edema. Pressure held, no bleeding, 2x2 applied and taped. Pt tolerated procedure well, offers no complaints.
== END ==
LOC: RCS 12:54
PROVIDERS: ATTENDING PHYSICIAN Internal Medicine Cardiovascular Disease; FAMILY PHYSICIAN Nurse Practitioner Family
DX: G40.909 Epilepsy, unspecified, not intractable, without status epilepticus (principal); Z87.898 Personal history of other specified conditions
CPT/HCPCS: 93306